=== PATIENT | male | born 1995 | race Caucasian/White ===

== ENCOUNTER 2018-11-26 13:31 | Inpatient (IN) | payer OTHER ==
[2018-11-26] MEDS ORDERED: Ondansetron PF 4 MG/2 ML Vial ONE (13:37)
[2018-11-26] MEDS ORDERED: Morphine 4 MG/ML VIAL ONE (13:37)
[2018-11-26 14:12] LABS: #Basophils 0.1 thou/uL (0.0-0.2); #Eosinphils 0.1 thou/uL (0.0-0.7); #Lymphocytes 2.3 thou/uL (1.20-3.40); #Monocytes 0.7 thou/uL (0.11-0.59); #Neutrophils 5.8 thou/uL (1.40-6.50); %Eosinophils 0.7 % (0.0-10.0); %Monocytes 7.3 % (0.0-10.0); Hemoglobin 16.6 g/dL (14.0-18.0); Mean Corpuscular HGB CONC 34.6 g/dL (32.0-36.0); Mean Corpuscular Hemoglobin 31.4 pg (27.0-31.0); Mean Corpuscular Volume 90.8 fL (78.0-98.0); Mean Platelet Volume 8.3 fL (7.4-10.4); Platelet Count 265 thou/uL (130-400); Red Blood Cell (RBC) Count 5.26 mill/uL (4.70-6.10)
--- NOTE | 2018-11-26 14:12 | RAD ---
EXAM: 2 views of the right tibia/fibula HISTORY: Got his leg caught in a machine with pain in the right leg. COMPARISON: None FINDINGS: There are comminuted fractures of the mid portions of the tibia and fibula. Surrounding sof t tissue swelling is present. The fractures do not extend to extend to either the knee or ankle joints. IMPRESSION: Comminuted right tibia and fibula fractures.
[2018-11-26] MEDS ORDERED: Fentanyl 100 MCG/2 ML VIAL ONE ×2 (14:23→15:18)
[2018-11-26] MEDS ORDERED: CEFAZOLIN 2 GM in Premix Bag 1 BAG IVPB SCH (14:30)
[2018-11-26 14:36] LABS: ALT (SGPT) 18 U/L (8-55); AST (SGOT) 18 U/L (5-34); Albumin 5.3 g/dL (3.5-5.0); Alkaline Phosphatase 70 U/L (40-150); Anion Gap 17 mmol/L (10-20); BUN (Urea Nitrogen) 13 mg/dL (8.9-20.6); Bilirubin, Total 1.7 mg/dL (0.2-1.2); Calc. Creatinine Clearance 0 mL/min (70-130); Calcium 10.4 mg/dL (7.8-10.44); Carbon Dioxide 24 mmol/L (22-29); Chloride 103 mmol/L (98-107); Estimated GFR-MDRD 76; Glucose 123 mg/dL (70-105); Potassium 3.7 mmol/L (3.5-5.1); Protein, Total 8.3 g/dL (6.0-8.3); Sodium 140 mmol/L (136-145)
--- NOTE | 2018-11-26 14:56 | CON ---
DATE OF CONSULTATION: HISTORY OF PRESENT ILLNESS: We were asked by ER and Trauma to see the patient. The patient was in his normal state of health. He was at work when he was stepping off the machine, when his right leg got caught, he slipped down, twists his leg and had instantaneous pain in his right lower extremity. He is a healthy individual. Denies any numbness or tingling. No loss of consciousness. No other injuries, but he is in fairly significant pain. PAST MEDICAL HISTORY: Positive for some kidney stones and arthritis. PAST SURGICAL HISTORY: Tonsils and wisdom teeth. SOCIAL HISTORY: Has occasional Et[employer] beverage. No nicotine or drug use. ALLERGIES: NO KNOWN DRUG ALLERGIES. CURRENT MEDICATIONS: None. REVIEW OF SYSTEMS: Healthy other than right lower extremity pain. Review of systems other than right lower extremity pain is absolutely negative. FAMILY HISTORY: Noncontributory to this issue. PHYSICAL EXAMINATION: GENERAL: A well-nourished, well-developed male, resting on a gurney in room 25 in the ER. Speech is clear and fluent. No acute distress. Members of his work are in the room. HEENT: Normal exam. Head; normocephalic. Face symmetric. Tongue midline. NECK: Supple. Trachea midline. EXTREMITIES: Upper extremities; equal, size, shape, symmetry. Normal bulk and tone. Lower extremities; obvious swelling seen to the right lower extremity, but he has good sensations to bilateral lower extremities. DP/PT pulses are equal and intact. He is able to move that right lower extremity, but it is quite painful in doing so. RESPIRATORY: No acute distress. Breathing normally. VITAL SIGNS: Normal. DIAGNOSTIC DATA: X-rays; obvious spiral fracture seen in the right tibia. ASSESSMENT: Right tibial fracture. PLAN: I spoke with the patient. Plan on doing a tibial nailing on the right. We explained the risks and benefits of surgery. The patient understands these and is amenable to go forth with surgery. He ate at noon today. Therefore, we will add him onto the surgery schedule tomorrow. He understands this. Trauma will admit and keep his pain controlled overnight, and will get him set up for surgery first thing in the morning. His questions and concerns have been addressed and answered. Job ID: [id number]
[2018-11-26] MEDS ORDERED: Ondansetron ODT 4 MG TAB PO PRN (15:07)
[2018-11-26] MEDS ORDERED: Dextrose 50% Abboject 50 ML SYRINGE SLOW IVP PRN (15:07)
[2018-11-26] MEDS ORDERED: HYDROcodone/Acetaminophen 10/325 mg Tablet PO PRN (15:07)
[2018-11-26] MEDS ORDERED: Ondansetron PF 4 MG/2 ML Vial IVP PRN (15:07)
[2018-11-26] MEDS ORDERED: Promethazine HCl 25 MG/ML VIAL IM PRN ×2 (15:07)
[2018-11-26] MEDS ORDERED: Dextrose 5% in Water 1,000 ML IV PRN (15:07)
[2018-11-26] MEDS ORDERED: hydrALAZINE 20 MG/ML VIAL SLOW IVP PRN (15:07)
--- NOTE | 2018-11-26 15:44 | HP ---
This is Ottoniel Landry PA-C dictating a report for Martín Lal MD. REQUESTING PHYSICIAN: Dr. Hope. CONSULTATIONS: Orthopedics, Dr. Louie. HISTORY OF PRESENT ILLNESS: The patient is a 23-year-old man, who was stepping off a piece of equipment of approximately about 3 feet in height when he lost his balance and fell, landing on his right leg. The patient had immediate pain and discomfort, was brought to the emergency room by partly owned vehicle, where he underwent evaluation and examination. He was noted to have a right tibia and fibular fracture, at which time, we were asked to admit the patient and obtain Orthopedic consultation. The patient denied hitting his head, any loss of consciousness or any syncopal events prior to his fall. ALLERGIES: NONE. CURRENT MEDICATIONS: None. PAST MEDICAL HISTORY: None. PAST SURGICAL HISTORY: Tonsillectomy. SOCIAL HISTORY: Alcohol, the patient drinks approximately once a week. Denies tobacco or drug use. 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 REVIEW OF SYSTEMS: Ten-point review of systems is negative except as otherwise stated. PHYSICAL EXAMINATION: VITAL SIGNS: Blood pressure 151/89, heart rate 81, respirations 16, oxygen saturation 95% on room air, and temperature is 98.4. GENERAL: The patient is resting comfortably in bed. He is awake, alert, and oriented x3. [place] Coma Scale is 15. HEENT: Head is normocephalic atraumatic. Eyes; extraocular motion intact. PERRLA bilaterally. Ears are atraumatic without discharge. Nose atraumatic without discharge. Oropharynx is clear. NECK: Nontender. Trachea is midline. No JVD. CHEST: Clear to auscultation with good inspiratory and expiratory effort. HEART: Regular rate and rhythm. ABDOMEN: Soft, flat, and nontender with active bowel sounds. PELVIS: Stable. EXTREMITIES: Neurovascularly intact x4. Right lower extremity shows swelling at the midshaft of his tibia and fibula. The compartments are all soft. The patient has no signs of compartment syndrome at this time. BACK: Atraumatic and nontender. LABORATORY FINDINGS: White blood cell count 9.0, hemoglobin 16.6, hematocrit 47.8, and platelets 265. Sodium 140, potassium 3.7, chloride 103, CO2 of 24, BUN 13, creatinine 1.19, and glucose 123. LFTs are unremarkable. RADIOGRAPHIC FINDINGS: Views of the right lower extremity show a comminuted right tibia and fibular fractures. ASSESSMENT AND PLAN: 1. Status post fall from approximately 3 feet. 2. Right tibia and fibular fracture. 3. Acute pain secondary to trauma. PLAN: Plan will be to admit the patient to the surgical floor. We will make him n.p.o. after midnight. Plan for him to go to the operating room tomorrow with Orthopedic Team. pain medications, pulmonary toilet, gastritis, mechanical VTE prophylaxis. Postoperatively, we will have him work with Physical and Occupational Therapy and likely could be discharged home tomorrow afternoon. The evaluation, examination, laboratory, and radiographic findings will be discussed with Dr. Lal after this dictation. The patient was evaluated in the emergency department by Dr. Louie. Job ID: [id number]
[2018-11-26 15:51] VITALS: BMI 31.9
[2018-11-26] MEDS: HYDROcodone/Acetaminophen 10/325 mg Tablet PO PRN ×2 (16:24→22:33)
[2018-11-26] MEDS: Morphine 4 MG/ML VIAL SLOW IVP PRN ×3 (17:44→23:54)
[2018-11-26] MEDS ORDERED: Morphine 4 MG/ML VIAL SLOW IVP SCH (18:30)
[2018-11-26] MEDS: Cyclobenzaprine 10 MG TAB PO PRN (19:53)
[2018-11-26] MEDS: Famotidine 20 MG TAB PO SCH (20:00)
[2018-11-27] MEDS: Morphine 4 MG/ML VIAL SLOW IVP PRN ×2 (06:15→07:34)
[2018-11-27] MEDS: Sodium Chloride 0.9% 1,000 ML IV SCH ×2 (08:12)
[2018-11-27] MEDS: Polyethylene Glycol 3350 17 GM Packet PO SCH (08:12)
[2018-11-27] MEDS: Senokot S 8.6-50 MG TAB PO SCH ×2 (08:12→20:57)
[2018-11-27] MEDS: Famotidine 20 MG TAB PO SCH ×2 (08:12→20:57)
[2018-11-27] MEDS ORDERED: Midazolam HCl 2 mg/2 ml Vial ONE ×2 (08:15→12:08)
[2018-11-27 08:18] LABS: #Eosinphils 0.1 thou/uL (0.0-0.7); #Lymphocytes 1.9 thou/uL (1.20-3.40); #Monocytes 0.6 thou/uL (0.11-0.59); #Neutrophils 4.2 thou/uL (1.40-6.50); %Basophils 0.3 % (0.0-1.0); %Eosinophils 0.9 % (0.0-10.0); %Lymphocytes 28.1 % (21.0-51.0); %Monocytes 8.9 % (0.0-10.0); %Neutrophils 61.8 % (42.0-75.0); Hemoglobin 14.6 g/dL (14.0-18.0); Mean Corpuscular HGB CONC 34.6 g/dL (32.0-36.0); Mean Corpuscular Hemoglobin 31.7 pg (27.0-31.0); Mean Corpuscular Volume 91.7 fL (78.0-98.0); Mean Platelet Volume 8.4 fL (7.4-10.4); Platelet Count 164 thou/uL (130-400); White Blood Cell (WBC) Count 6.7 thou/uL (4.8-10.8)
[2018-11-27 08:28] LABS: Anion Gap 13 mmol/L (10-20); BUN (Urea Nitrogen) 12 mg/dL (8.9-20.6); Calc. Creatinine Clearance 149 mL/min (70-130); Calcium 9.5 mg/dL (7.8-10.44); Carbon Dioxide 26 mmol/L (22-29); Chloride 103 mmol/L (98-107); Estimated GFR-MDRD 89; Glucose 94 mg/dL (70-105); Potassium 3.8 mmol/L (3.5-5.1); Sodium 138 mmol/L (136-145)
[2018-11-27] MEDS ORDERED: Fentanyl 100 MCG/2 ML VIAL ONE ×3 (09:16→11:23)
[2018-11-27] MEDS ORDERED: Morphine Sulfate 2 MG/ML SYRINGE SLOW IVP PRN (10:27)
[2018-11-27] MEDS ORDERED: Ondansetron HCl/PF 4 MG/2 ML Vial IVP PRN (10:27)
[2018-11-27] MEDS ORDERED: HYDROmorphone 2 MG/ML VIAL SLOW IVP PRN (10:27)
[2018-11-27] MEDS ORDERED: Promethazine HCl 25 MG/ML VIAL IM PRN (10:27)
[2018-11-27] MEDS ORDERED: Promethazine HCl 25 MG/ML VIAL SLOW IVP PRN (10:27)
[2018-11-27] MEDS ORDERED: Meperidine HCl/PF 25 MG/ML VIAL SLOW IVP PRN (10:27)
[2018-11-27] MEDS ORDERED: PACU-Morphine 4MG/ML VIAL SLOW IVP PRN (10:27)
--- NOTE | 2018-11-27 10:49 | OP ---
DATE OF PROCEDURE: 11/27/2018 OPERATION: Right tibia and fibular fracture, intramedullary nail. PREOPERATIVE DIAGNOSIS: Right tibia and fibular fracture. POSTOPERATIVE DIAGNOSIS: Right tibia and fibular fracture. COMPLICATIONS: None. ESTIMATED BLOOD LOSS: 100 mL. FIELD INTERVIEWER: Nehal Blanc PA-C IMPLANT: Synthes 8-mm tibial nail with Crosslock screws. INDICATIONS: Mr. Lopes is a 23-year-old male, who fell and fractured his right tibia and fibula. He was indicated for tibial intramedullary nail to restore alignment, promote healing, and provide stability to the fracture. Risks have been reviewed in detail. He elected to proceed with the operation. DESCRIPTION OF PROCEDURE: Mr. Lopes was identified in the preoperative holding area. His correct extremity was marked. He was carried to the operating room. He was positioned supine. General anesthesia was induced. A multidisciplinary time-out was performed. The patient was given intravenous antibiotics. The right leg was prepped and draped in sterile fashion. At this point, we began the procedure with an incision over the knee. We dissected down through the subcutaneous tissues to the patella tendon. We performed a medial parapatellar incision. This brought us down to the tibial plateau. We were able to enter the tibial plateau with a guidewire. This was checked on intraoperative x-ray. We then overdrilled the guidewire. At this point, we placed our ball-tipped guidewire across the fracture distally. We measured an appropriate length for nail. We then reamed from an 8.5 reamer up to a size 9.5 reamer. We accepted this with good chatter. We placed a size 8 tibial nail, which was 330 mm in length. At this point, we placed two proximal Crosslock screws using the guide. We then placed two distal Crosslock screws using perfect [place] technique. We thoroughly irrigated with copious lavage. We then took final x-ray images. The patient's wounds were then closed in layers appropriately. At this point, we placed an Ortho-Glass splint and the patient was taken to the recovery room in good condition. Job ID: [id number]
--- NOTE | 2018-11-27 11:11 | RAD ---
XR Tib Fib Rt Leg 2 View HISTORY: Fractures of the right tibia and fibula COMPARISON: 11/26/2018 FINDINGS: Multiple spot fluoroscopic images of the right leg demonstrate interval reduction and inter nal fixation of the comminuted fracture of the right tibia since the previous day's exam. Fracture of the fibula is again seen
[2018-11-27] MEDS ORDERED: Promethazine HCl 25 MG/ML VIAL ONE (11:23)
[2018-11-27] MEDS ORDERED: Dexamethasone 4 mg/ml Vial ONE (11:44)
[2018-11-27] MEDS: Acetaminophen 325 MG TAB PO SCH ×2 (13:26→17:19)
[2018-11-27] MEDS ORDERED: Fat Emulsion 250 ML ONE (13:30)
[2018-11-27] MEDS: Ibuprofen 800 MG TAB PO SCH ×2 (14:37→21:00)
[2018-11-27] MEDS: CEFAZOLIN 2 GM in Premix Bag 1 BAG IVPB SCH (15:44)
--- NOTE | 2018-11-27 16:22 | PRG ---
DATE OF SERVICE: 11/27/2018 SUBJECTIVE: The patient was seen this afternoon postop after a fixation of his right tib-fib fracture, completed by Dr. Louie. Postoperatively, the patient received a block by Anesthesiology Team and subsequently had a tonoclonic seizure and was postictal afterwards. He has returned to his baseline mentation. He does not have a previous history of seizures. Reports that he does not feel significantly fatigued or having muscle pain. I spoke to Anesthesiology, who reported they gave the patient Versed during the seizure and afterward the lipids to help prevent long-term effects of the lidocaine injection. At the time of my evaluation, he reported pain was well controlled. He had tolerated regular diet. He had not gotten up out of bed yet. However, he did urinate without difficulty. OBJECTIVE: VITAL SIGNS: Temperature 98.2, pulse 107, respirations 18, oxygen 98% on room air, and blood pressure 120/78. GENERAL: Well-appearing young male, lying in bed with no signs of acute distress. PULMONARY: Equal chest rise and fall. Clear breath sounds bilaterally. No signs of acute respiratory distress. CARDIAC: Tachycardic, but otherwise regular rhythm. GI: Abdomen is soft, nontender, and nondistended. EXTREMITIES: Splint to right lower extremity with dressing clean, dry, and intact. No motor sensation due to nerve block completed today. Toes are warm with 2+ cap refill. Left lower extremity and bilateral upper extremities with 2+ pulses and gross motor and sensation intact. No significant swelling noted. LABORATORY FINDINGS: White count 6.7, hemoglobin 14.6, hematocrit 42.2, and platelets 164. Sodium 138, potassium 3.8, chloride 103, carbon dioxide 26, BUN 12, and creatinine 1.04. DIAGNOSTIC FINDINGS: There are no new diagnostic findings to report. ASSESSMENT: 1. Status post mechanical fall, 3 feet. 2. Right tib-fib fracture, status post repair. 3. Postoperative seizure, resolved. 4. Postoperative tachycardia. PLAN: The patient will be kept overnight for monitoring due to his postoperative seizure. He is alert and oriented x3. Reports pain is well controlled. We will get the patient up tomorrow with Physical Therapy to work with crutches. He will have a regular diet. Discontinue IV fluids. If the patient continues to be tachycardic, we will complete an EKG and give 500 mL bolus of normal saline. If tachycardia does not resolve after bolus, we will check a complete set of labs including lactate. The patient was discussed with Dr. Saleh before this dictation. Job ID: [id number]
[2018-11-27] MEDS ORDERED: Bupivacaine HCl 0.5%/Epinephrine 1:200,000/PF 30 ml Vial ONE (16:30)
[2018-11-27] MEDS ORDERED: PROPOFOL 200 MG/20 ML VIAL ONE (17:00)
[2018-11-27] MEDS ORDERED: Ketorolac Tromethamine 30 MG/ML VIAL ONE (17:00)
[2018-11-27] MEDS ORDERED: Dexamethasone 20 MG/5 ML VIAL ONE (17:00)
[2018-11-27] MEDS ORDERED: Ondansetron PF 4 MG/2 ML Vial ONE (17:00)
[2018-11-27] MEDS ORDERED: Rocuronium Bromide 10 MG/ML (10ML VIAL) ONE (17:00)
[2018-11-27] MEDS ORDERED: Lidocaine 1% PF 5 ML VIAL ONE (17:00)
[2018-11-27] MEDS ORDERED: Glycopyrrolate 0.2 MG/ML 5 ML SYRINGE ONE (17:00)
[2018-11-27] MEDS: HYDROcodone/Acetaminophen 10/325 mg Tablet PO PRN (20:55)
[2018-11-28] MEDS: CEFAZOLIN 2 GM in Premix Bag 1 BAG IVPB SCH (00:31)
[2018-11-28] MEDS: Acetaminophen 325 MG TAB PO SCH ×3 (00:51→11:38)
[2018-11-28] MEDS: Ibuprofen 800 MG TAB PO SCH (06:36)
[2018-11-28] MEDS: HYDROcodone/Acetaminophen 10/325 mg Tablet PO PRN ×2 (06:37→11:39)
[2018-11-28 06:59] LABS: Anion Gap 13 mmol/L (10-20); BUN (Urea Nitrogen) 14 mg/dL (8.9-20.6); Calc. Creatinine Clearance 163 mL/min (70-130); Calcium 9.8 mg/dL (7.8-10.44); Carbon Dioxide 26 mmol/L (22-29); Chloride 103 mmol/L (98-107); Estimated GFR-MDRD Greater than 90; Glucose 116 mg/dL (70-105); Magnesium 2.3 mg/dL (1.6-2.6); Phosphorus 4.4 mg/dL (2.3-4.7); Potassium 4.2 mmol/L (3.5-5.1); Sodium 138 mmol/L (136-145)
[2018-11-28 07:36] LABS: #Basophils 0.1 thou/uL (0.0-0.2); #Lymphocytes 1.1 thou/uL (1.20-3.40); #Monocytes 0.9 thou/uL (0.11-0.59); #Neutrophils 9.6 thou/uL (1.40-6.50); %Basophils 0.9 % (0.0-1.0); %Eosinophils 0.1 % (0.0-10.0); %Lymphocytes 9.2 % (21.0-51.0); %Monocytes 7.6 % (0.0-10.0); %Neutrophils 82.2 % (42.0-75.0); Hemoglobin 13.7 g/dL (14.0-18.0); Mean Corpuscular HGB CONC 34.7 g/dL (32.0-36.0); Mean Corpuscular Hemoglobin 31.7 pg (27.0-31.0); Mean Corpuscular Volume 91.3 fL (78.0-98.0); Mean Platelet Volume 8.7 fL (7.4-10.4); Platelet Count 200 thou/uL (130-400); RBC Distribution Width 11.8 % (11.5-14.5); Red Blood Cell (RBC) Count 4.33 mill/uL (4.70-6.10); White Blood Cell (WBC) Count 11.6 thou/uL (4.8-10.8)
[2018-11-28] MEDS: Polyethylene Glycol 3350 17 GM Packet PO SCH (09:57)
[2018-11-28] MEDS: Cyclobenzaprine 10 MG TAB PO PRN (09:57)
[2018-11-28] MEDS: Senokot S 8.6-50 MG TAB PO SCH (09:57)
[2018-11-28] MEDS: Famotidine 20 MG TAB PO SCH (09:58)
[2018-11-28 12:20] VITALS: TEMP 98.7
[2018-11-28 14:22] VITALS: BP 116/76
--- NOTE | 2018-11-29 03:44 | DIS ---
DATE OF ADMISSION: 11/26/2018 DATE OF DISCHARGE: 11/28/2018 ADMISSION DIAGNOSES: Fall from 3 feet and a right tib-fib fracture. DISCHARGE DIAGNOSES: Fall from 3 feet, right tib-fib fracture, and post-procedure seizure. CONSULTING PHYSICIAN: Dr. Louie, Orthopedic Surgery. PROCEDURES: The patient went to the OR on 11/27/[address] Louie and received a right tibia and fibular fracture intramedullary nail. HOSPITAL COURSE: This 23-year-old male presented to the emergency department after jumping off a piece of equipment about 3 feet tall at work. On further evaluation in the emergency department, he was noted to have a right tib-fib fracture. He was admitted to the hospital and subsequently went to the OR the next day with Dr. Louie and received a IM nail of the right tib-fib. Postoperatively, the patient received a nerve block by anesthesia and it was reported that the patient had a seizure afterwards due to lidocaine injection intravascularly. He received Versed and lipids and his seizures were stopped. He had no acute events after that. He was returned to the floor with a GCS of 15 with no focal neurological deficits. He has no history of seizures. He was kept overnight to assure no further complications postoperatively. He worked with physical therapy and was able to easily mobilize with crutches. He is going to his mother's home and will be staying on the first floor. There is a half a step in order to get into his home. At the time of discharge, the patient was tolerating a regular diet. Pain was well controlled. He was voiding without difficulties, had a bowel movement during the morning. DISCHARGE DISPOSITION: Home. DISCHARGE CONDITION: Satisfactory. PHYSICAL EXAMINATION: VITAL SIGNS: Temperature 97.9, pulse 75, respirations 18, oxygen 97% on room air, blood pressure 124/76. GENERAL: A well-appearing young male, sitting up at edge of bed with no signs of acute distress. PULMONARY: Equal chest rise and fall. Clear breath sounds bilaterally. No signs of acute pulmonary distress. CARDIAC: Regular rate and rhythm. No murmurs, gallops, or rubs. GASTROINTESTINAL: Soft, nontender, nondistended. EXTREMITIES: Right lower extremity with splint in place which is clean, dry, and intact. No signs of infection. Gross motor and sensation intact in all 4 extremities. 2+ pulses in all extremities. DISCHARGE INSTRUCTIONS: The patient was discharged home, nonweightbearing right lower extremity. Regular diet with crutches. DISCHARGE MEDICATIONS: Include: 1. Aspirin. 2. Flexeril. 3. Hydrocodone. 4. MiraLAX. FOLLOWUP APPOINTMENTS: The patient is to follow up with Dr. Louie in 14 days. This is merely a summary of the patient's hospitalization. For full details, please see his medical record in its entirety. Job ID: [id number]
--- NOTE | 2018-11-30 22:39 | EKG ---
Test Reason : Blood Pressure : / mmHG Vent. Rate : 098 BPM Atrial Rate : 098 BPM P-R Int : 138 ms QRS Dur : 084 ms QT Int : 332 ms P-R-T Axes : 063 091 010 degrees QTc Int : 423 ms Normal sinus rhythm with sinus arrhythmia Rightward axis Nonspecific T wave abnormality Abnormal ECG No previous ECGs available Confirmed by Dede LEA ([id number]) on 11/30/2018 10:39:29 PM Referred By: Confirmed By:Dede LEA
== END 2018-11-28 13:30 | disposition home or self-care (01) | DRG 493 ==
LOC: ERS 13:31 → SURG A 15:46
PROVIDERS: ADMIT Specialist; ATTEND Specialist
PROC: 0QHG36Z Insertion of Intramedullary Internal Fixation Device into Right Tibia, Percutaneous Approach (ICD-10-PCS; principal; 2018-11-27)
DX: S82.244A Nondisplaced spiral fracture of shaft of right tibia, initial encounter for closed fracture (principal); G40.89 Other seizures; I97.89 Other postprocedural complications and disorders of the circulatory system, not elsewhere classified; W17.89XA Other fall from one level to another, initial encounter; Y92.9 Unspecified place or not applicable; M19.90 Unspecified osteoarthritis, unspecified site; N20.0 Calculus of kidney
CPT/HCPCS: 36415; 76000; 80048; 80053; 83735; 84100; 85025; 93005; 93010; 96374; 96375; 96376; C1713; C1769; J0690; J1100; J2250; J2270; J2405; J2550; J3010